=== PATIENT | male | born 2000 | race Two or more races ===

== ENCOUNTER 2023-10-07 12:07 | Emergency (ER) | payer OTHER, SELFPAY ==
--- NOTE | ~2023-10-07 | XR_ITS ---
EXAMINATION: XR SHOULDER, LEFT CLINICAL INFORMATION: Left shoulder injury COMPARISON: None available. TECHNIQUE: Three views of the left shoulder. FINDINGS: No acute visible fracture or dislocation. Joint spaces and alignment are maintained. Soft tissues are unremarkable. Visualized portions of the left chest are unremarkable. XR/XR shoulder LT min 2V IMPRESSION: No acute visible fracture or dislocation.
[2023-10-07 13:06] VITALS: BP 133/69; PULSE 98; RESP 16; TEMP 37.1; O2SAT 100; BMI 19.4
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
[2023-10-07] MEDS: Lidocaine 4 % Patch ADH..PATCH 1 PATCH TRANSDERMA (15:09)
[2023-10-07] MEDS: Acetaminophen 325 MG TABLET 650 MG PO (15:09)
== END 2023-10-07 17:02 | disposition home or self-care (01) ==
PROVIDERS: Emergency Provider Emergency Medicine
DX: S43.402A Unspecified sprain of left shoulder joint, initial encounter (principal); V47.5XXA Car driver injured in collision with fixed or stationary object in traffic accident, initial encounter; Y93.89 Activity, other specified; Y92.414 Local residential or business street as the place of occurrence of the external cause; Y99.9 Unspecified external cause status
CPT/HCPCS: 73030; 99283